=== PATIENT | male | born 1970 | race Caucasian/White ===

== ENCOUNTER 2023-01-14 06:53 | Day surgery (SDC) | payer OTHER ==
[~2023-01-14] VITALS: Ht 167.6 cm; Wt 89.4 kg
[2023-01-14] MEDS ORDERED: MIDAZOLAM 5 MG/5 ML VIAL ONE (07:55)
[2023-01-14] MEDS ORDERED: fentaNYL citrate 0.05 MG/ML VIAL ONE (07:55)
[2023-01-14] MEDS ORDERED: LIDOCAINE 2% 100 MG/5 ML UJET TP ONE (07:55)
[2023-01-14] MEDS ORDERED: fentaNYL citrate 0.05 MG/ML VIAL IVP ONE (09:45)
[2023-01-14] MEDS ORDERED: MIDAZOLAM 5 MG/5 ML VIAL IV ONE (09:45)
== END 2023-01-14 09:56 | disposition home or self-care (01) ==
LOC: MOR 06:53 → MMU 06:53 → MOR 09:56
PROVIDERS: ATTEND Internal Medicine Gastroenterology
DX: Z12.11 Encounter for screening for malignant neoplasm of colon (principal); K63.5 Polyp of colon; K57.30 Diverticulosis of large intestine without perforation or abscess without bleeding; K21.9 Gastro-esophageal reflux disease without esophagitis; E78.5 Hyperlipidemia, unspecified; K29.70 Gastritis, unspecified, without bleeding; Z88.0 Allergy status to penicillin; Z80.0 Family history of malignant neoplasm of digestive organs; Z20.822 Contact with and (suspected) exposure to COVID-19; Z79.899 Other long term (current) drug therapy
CPT/HCPCS: 36415; 43239; 45385; 86677; 87426; J2250; J3010